=== PATIENT | male | born 1975 | race Caucasian/White ===

== ENCOUNTER 2017-10-12 19:22 | Emergency (ER) | payer SELFPAY ==
[~2017-10-12] VITALS: Ht 180.3 cm; Wt 90.9 kg
[~2017-10-12 19:22] MED LIST: BACTRIM DS1 TAB PO; CEPHALEXIN500 MG PO; CIPROFLOXACN500 MG PO; LORTAB 1010 MG PO; MEDDOSEPAK PO; PERCOCET 5/325M1 TAB PO
[2017-10-12] MEDS ORDERED: PERCOCET 5/325M1 TAB PO (19:45)
[2017-10-12] MEDS ORDERED: AMOXICILLIN500 MG PO (19:45)
[2017-10-12 19:54] VITALS: BP 127/86
== END 2017-10-12 19:55 | disposition home or self-care (01) | DRG 153 ==
LOC: ED 19:22
DX: H66.91 Otitis media, unspecified, right ear (principal); H92.01 Otalgia, right ear

== ENCOUNTER 2017-10-26 17:00 | Emergency (ER) | payer SELFPAY ==
[~2017-10-26] VITALS: Ht 180.3 cm; Wt 90.0 kg
[~2017-10-26 17:00] MED LIST changes: +AMOXICILLIN500 MG PO
[2017-10-26] MEDS ORDERED: FLOXIN OTIC0.3 % OT (17:22)
[2017-10-26] MEDS ORDERED: LEVAQUIN750 M1 PO (17:22)
[2017-10-26 17:30] VITALS: BP 138/88
== END 2017-10-26 17:30 | disposition home or self-care (01) | DRG 156 ==
LOC: ED 17:00
DX: H60.91 Unspecified otitis externa, right ear (principal)

== ENCOUNTER 2018-08-02 12:57 | Emergency (ER) | payer SELFPAY ==
[~2018-08-02] VITALS: Ht 180.3 cm; Wt 95.0 kg
[~2018-08-02 12:57] MED LIST changes: +FLOXIN OTIC0.3 % OT; +LEVAQUIN750 M1 PO
[2018-08-02] MEDS ORDERED: AMOXICILLIN500 MG PO (13:32)
[2018-08-02] MEDS ORDERED: ULTRAM50 M1 PO (13:32)
[2018-08-02 13:34] VITALS: BP 138/81
== END 2018-08-02 13:34 | disposition home or self-care (01) | DRG 159 ==
LOC: ED 12:57
DX: K04.7 Periapical abscess without sinus (principal); F17.200 Nicotine dependence, unspecified, uncomplicated

== ENCOUNTER 2019-10-31 22:47 | Emergency (ER) | payer SELFPAY ==
[~2019-10-31] VITALS: Ht 180.3 cm; Wt 109.1 kg
[~2019-10-31 22:47] MED LIST changes: +ULTRAM50 M1 PO
[2019-10-31 23:00] VITALS: BP 177/92
[2019-10-31] MEDS ORDERED: BACTRIM DS1 TAB PO (23:20)
== END 2019-10-31 23:35 | disposition home or self-care (01) | DRG 158 ==
LOC: ED 22:47
DX: K04.7 Periapical abscess without sinus (principal); K02.9 Dental caries, unspecified; L03.114 Cellulitis of left upper limb; F17.210 Nicotine dependence, cigarettes, uncomplicated